=== PATIENT | female | born 1970 ===

== ENCOUNTER 2018-03-02 06:14 | Inpatient (IN) | payer OTHER ==
[2018-02-24 09:16] VITALS: BMI 35.3
[2018-03-02] MEDS ORDERED: Bupivacaine-Epi 0.25%-1:200,000 PF Inj IJ ONE (07:31)
[2018-03-02] MEDS ORDERED: Bacitracin 50,000 UNIT in Sodium Chloride 0.9% Irrig 1,000 ML IR SCH (07:32)
[2018-03-02] MEDS ORDERED: Bupivacaine-Epi 0.5%-1:200,000 PF Inj IJ ONE (07:36)
[2018-03-02] MEDS ORDERED: cefOXitin IV 1 gm in Dextrose 2 GM/100 ML BAG IVPB ONE (07:51)
[2018-03-02] MEDS ORDERED: Clindamycin 2% Vaginal Cream(40 gm) ONE (07:51)
[2018-03-02] MEDS ORDERED: Sodium Chloride 0.9% 0 ML IV ONE (07:53)
[2018-03-02] MEDS ORDERED: Methylene Blue 10 mg/mL(10ml) IV ONE (07:53)
[2018-03-02] MEDS ORDERED: Midazolam 2 MG/2 ML VIAL ONE (08:13)
[2018-03-02] MEDS ORDERED: Propofol 10 mg/ml Inj (20 ML) ONE (08:13)
[2018-03-02] MEDS ORDERED: HYDROmorphone 0.5 mg/0.5 ml ISec IVP PRN (09:38)
--- NOTE | 2018-03-02 09:49 | PCM.OP ---
Operative Report - Operative Report Date of Surgery/Procedure: 03/02/18 Time of Surgery/Procedure: 09:47 Surgeon: chaparrita larios md Manager Investigations: hermann PETERSON Anesthesia/Sedation: Gen with ET tube Pre-Operative Diagnosis: cystocele. urinary incontinence. rectocele. vaginal vault prolapse Post-Operative Diagnosis: cystocele. urinary incontinence. rectocele. 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 worsening urinary incontinence Operative Findings: stage 4 cystocele and rectocele. hypermobile urethra Procedure/Operation Description: Anterior posterior colporhaphy. Midurethral sling. Diognostic cystoscopy. Detailed operative report. This is a 47 years old female with long-standing and worsening symptoms of urinary incontinence and vaginal vault prolapse following a hysterectomy for complete uterine prolapse. The patient is reporting a vaginal bulge and pressure worsening over time. The patient reported these symptoms to be debilitating and adversely affecting her quality of life. The patient is reporting leakage of urine upon any exertion, coughing sneezing as well as urgency incontinence. These symptoms of severe leakage of urine on exertion have worsened. In addition , the patient is reporting a vaginal bulge in the back of the vagina which is growing over time it is the source of her major concern and discomfort in her daily activities. A complete work up in the office which included an ultrasound and urodynamic study revealed a picture of mixed urinary incontinence with a strong stress urinary incontinence component. The patient had a long period of failed conservative management which included weight loss, Kegel exercises, and pelvic floor rehabilitation exercises. Following the complete workup, a long discussion of surgical vs other conservative was completed. A decision was made to proceed with a colporrhaphy / vaginal repair , as well as mid-urethral sling procedure using synthetic mesh material. After a detailed discussion about the pros and cons of using polypropylene midurethral sling, all benefits and risks were reviewed including but not limited to the risk of infection, mesh erosion / extrusion, chronic pain and dyspareunia. In addition, the FDA warning about mesh utilization for prolapse and incontinence surgery was reviewed in details, and specific written consent was obtained. The patient elected to proceed with a midurethral sling today fully understanding the risk associated with utilizing mesh material. Other alternatives were also offered to the patient, including a biological graft such as porcine sling as well as the patient owns fascia as sling material, she elected to proceed with a mesh sling despite associated risks. Lastly, the patient elected to undergo a primary AP vaginal repair without mesh to correct a cystocele and rectocele and relaxed vaginal orifice. After proper consent was obtained from the patient, patient was taken to the operating room where general anesthesia was obtained without difficulty. She was placed in the dorsal lithotomy position, her legs were placed in adjustable Felix stirrups, careful attention was placed not to over-flex or over-rotate The lower extremities. Torres catheter was inserted under sterile conditions. She was prepped and draped appropriately for a vaginal repair and mid-urethral sling procedure. Examination revealed a widened introitus with a fourth degree cystourethrocele and prolapse of the vaginal wall following hysterectomy. There is a fourth degree rectocele. Rectovaginal confirmatory. Finally, enterocele as well as apical vaginal vault prolapse, a fourth degree was noted. After appropriate prep, the patient was draped in the usual manner for major vaginal surgery. A weighted speculum was placed posteriorly and the vagina was retracted anteriorly with a Maharaj retractor. At the 10 and 2 o'clock positions, at the cervicovaginal mucosal junction / site of the colpotomy incision from her prior hysterectomy, vaginal mucosa was grasped with an Allis clamp and intervening tissue excised. The vagina was then opened in the midline to within a centimeter of distal urethral meatus. The bladder was then sharply dissected free from the overlying vaginal mucosa. Blunt and sharp dissection was carried bilaterally the bladder from the anterior vaginal wall, dissecting towards ishchial tuberosity bilaterally. At this time, attention was then turned to the reduction of the cystocele. Pubovesical-cervical fascia was identified and an initial suture at the urethrovesical angle was placed using 0 Vicryl in a transverse position through that fascial plane. The remainder of the cystocele was reduced with several interrupted 0 Vicryl. Redundant vaginal tissue was excised and the vagina closed in midline with simple and figure-of- eight 0 Vicryl. The anterior vaginal wall over the midurethral area was grasped with a pair of Allis clamps and tenting the vaginal wall from the underlying urethra. Local anesthetic solution of 0.25% Marcaine with epinephrine diluted 1:1 was used to infiltrate the periurethral space. A total of 20 cc was utilized. Using a scalpel, a midurethral vertical incision about 1 cm was made through the vaginal epithelium and periurethral fascia. Careful lateral sharp dissection using Metzenbaum scissors towards the inferior pubic ramus to eventually allow the sling graft to lie flat against the urethra. Next , the sling mesh was loaded onto the needle tip. The needle tip was inserted through one side of the incision towards the medial edge of the obturator foramen approximately 45 degrees of the horizontal plane. Using an arching helical motion, the needle tip was advanced through pushing the obturator internus muscle. The needle was released from the graft and loaded on the other side of the sling ready for deployment to the contralateral side. Ensuring the sling is flat on the urethra and not twisted, the needle was advanced in an arching motion towards the obturator internus muscle on the opposite site. Attention was readdressed to allow a flat placement with tension- free sling on the midurethra. Following saline irrigation and good hemostasis was noted, the vaginal mucosa was closed with 2-0 Vicryl in a locking fashion. The bladder was then retracted superiorly. The hymenal ring was grasped at the 4 and 8 o' clock positions. A triangular incision was made to within a centimeter of the anus. The intervening tissue was excised. The vagina was then opened in the midline to within a centimeter of the cervix. Similarly, blunt and sharp dissection was carried to separate the posterior vaginal wall from the underlying rectum exposing the rectovaginal fascia. Interrupted 0 Vicryl sutures was utilized to reduce its posterior vaginal wall defect reducing the rectocele in an interrupted fashion. An anchoring suture was placed superiorly. The perineal body was freed and the rectum freed from the overlying vagina. Three perineal sutures were placed at this point using 0 Vicryl for eventual reapproximation. Perirectal fascia was then transversely sutured in the midline with several interrupted 0 Vicryl for support. Redundant vaginal mucosa was excised and the vagina closed in the midline in simple fashion with 0 Vicryl, grasping the fascia. Perineal sutures were then tied and the remainder of the perineal body reapproximated with several interrupted 3-0 Vicryl. Continuous suture utilizing 2-0 Vicryl suture material was utilized to close this posterior vaginal incision and in continuous locking fashion with excellent hemostasis. Rectal exam was negative. Bleeding point was noted anteriorly, which was suture transfixed with 3-0 Vicryl. The patient tolerated the procedure well. At this time, the Torres catheter was removed and a diagnostic cystoscopy was performed. The bladder was distended with about 300 cc of fluid. Both ureteral orifices were noted to be fluxing urine normally. The trigone was normal. There were no noted abnormalities with any evidence of any compromise of the lower urinary tract with mesh material, sutures or instruments. The patient emerged from general anesthesia without any difficulty. The patient was taken to the recovery room in stable condition. Prior to incision patient received prophylactic antibiotics, prior to closure sponge lap and needle counts are correct x2. Estimated Blood Loss: 10 Blood Replaced: none Sponge/Instrument Count: sponge lap and needle counts were correct x2 Drains: no drains utilized Complications: none Specimen: redundant vaginal wall Discharge & Condition: as per criteria
[2018-03-02] MEDS ORDERED: Morphine 4 MG/ML VIAL IVP PRN (09:51)
[2018-03-02] MEDS ORDERED: Oxycodone/Acetaminophen 5/325 mg Tab PO PRN (09:51)
[2018-03-02] MEDS ORDERED: Sodium Chloride 0.9% 1,000 ML IV SCH (10:00)
[2018-03-02] MEDS: ceFAZolin 2 GM in Sodium Chloride 0.9% 100 ML IVPB SCH ×2 (10:30→17:56)
[2018-03-02 14:59] VITALS: RESP 20
[2018-03-03] MEDS: ceFAZolin 2 GM in Sodium Chloride 0.9% 100 ML IVPB SCH (03:12)
[2018-03-03 08:07] LABS: HEMOGLOBIN 11.7 g/dL (11.0-16.0); MEAN CELL VOLUME 79.8 fL (81.0-99.0); MEAN CORPUSCULAR HEMOGLOBIN 27.5 pg (27.0-31.0); MEAN CORPUSCULAR HGB CONC 34.4 g/dL (33.0-37.0); RBC 4.26 Mil/uL (3.80-5.20); RED CELL DISTRIBUTION WIDTH 16.5 % (11.5-14.5); WHITE BLOOD COUNT 6.5 K/uL (4.8-10.8)
[2018-03-03 08:28] LABS: BLOOD UREA NITROGEN 15 mg/dL (7-17); CALCIUM 8.7 mg/dl (8.6-10.4); GFR AFRICAN-AMERICAN > 60; GFR NON-AFRICAN AMERICAN 59
[2018-03-03 08:36] VITALS: BP 152/89; PULSE 83; TEMP 98.4; O2SAT 97
--- NOTE | 2018-03-03 14:41 | CP.PCM.PN ---
Subjective - Date & Time of Evaluation Date of Evaluation: 03/03/18 Time of Evaluation: 14:41 - Subjective Subjective: Patient ambulating in hallway. Pain controlled. Torres out, has not voided yet Objective - Vital Signs/Intake and Output Vital Signs (last 24 hours): Temp Pulse Resp BP Pulse Ox 98.4 F 83 20 152/89 H 97 03/03/18 08:00 03/03/18 08:00 03/03/18 08:00 03/03/18 08:00 03/03/18 08:00 Intake and Output: 03/03/18 03/03/18 06:59 18:59 Intake Total 500 Output Total 1000 Balance -500 - Medications Medications: Current Medications Sodium Chloride (Sodium Chloride 0.9%) 1,000 mls @ 100 mls/hr IV .Q10H MERCEDEZ Last Admin: 03/02/18 11:00 Dose: 0 mls Morphine Sulfate (Morphine) 4 mg IVP Q4H PRN PRN Reason: Pain, severe (8-10) Ondansetron HCl (Zofran Inj) 4 mg IVP ONCE PRN PRN Reason: Nausea/Vomiting Oxycodone/Acetaminophen (Percocet 5/325 Mg Tab) 1 tab PO Q4 PRN PRN Reason: Pain, moderate (4-7) Stop: 03/05/18 09:52 - Labs Labs: 03/03/18 08:01 03/03/18 08:01 - Exam Additional comments: packing removed, small amount dark blood as expected abd soft Assessment and Plan (1) Cystocele Assessment & Plan: POD#1 s/p sling d/c home today after patient voids monitor for bleeding f/u 2 weeks encourage ambulation d/w Dr. Chaney, agrees with above Status: Acute (2) Rectocele Status: Acute (3) Urinary incontinence Status: Acute (4) Vaginal vault prolapse Status: Acute
== END 2018-03-03 15:45 | disposition home or self-care (01) | DRG 356 ==
LOC: C.SDS 06:14 → C.4M 09:52
PROVIDERS: ADMIT Obstetrics & Gynecology; ATTEND Obstetrics & Gynecology
PROC: 0JUC0JZ Supplement of Pelvic Region Subcutaneous Tissue and Fascia with Synthetic Substitute, Open Approach (ICD-10-PCS; 2018-03-02)
PROC: 0JUC0JZ Supplement of Pelvic Region Subcutaneous Tissue and Fascia with Synthetic Substitute, Open Approach (ICD-10-PCS; 2018-03-02)
PROC: 0TJB8ZZ Inspection of Bladder, Via Natural or Artificial Opening Endoscopic (ICD-10-PCS; 2018-03-02)
PROC: 0USG0ZZ Reposition Vagina, Open Approach (ICD-10-PCS; principal; 2018-03-02 07:45)
DX: N81.10 Cystocele, unspecified (principal); N39.3 Stress incontinence (female) (male); N81.6 Rectocele; N36.41 Hypermobility of urethra